=== PATIENT | female | born 1995 | race African-American/Black ===

== ENCOUNTER 2017-03-04 20:03 | Emergency (ER) | payer MEDICAID, OTHER ==
[~2017-03-04] VITALS: Ht 165.1 cm; Wt 84.4 kg
[2017-03-04 20:04] VITALS: BP 125/70
== END 2017-03-04 21:53 | disposition home or self-care (01) ==
LOC: ED 21:47
DX: M25.561 Pain in right knee (principal); M25.562 Pain in left knee
CPT/HCPCS: 93970; 99284